=== PATIENT | male | born 1960 | race Caucasian/White ===

== ENCOUNTER 2016-11-02 13:07 | Day surgery (SDC) | payer OTHER ==
[~2016-11-02] VITALS: Ht 170.2 cm; Wt 110.7 kg
[~2016-11-02 13:07] MED LIST: 0.9% Sodium Chloride 1,000 ML IV PRN; Sodium Chloride LOK Flush 10 mL Syringe IV PRN; fentaNYL-PF 50 mCg/mL 2 mL Inj IVPUSH PRN
[2016-11-02 13:44] VITALS: BP 126/77; PULSE 46; O2SAT 97
[2016-11-02] MEDS ORDERED: fentaNYL-PF 50 mCg/mL 2 mL Inj IVPUSH ONE (14:29)
[2016-11-02] MEDS ORDERED: Lactated Ringer's 1,000 ML IV ONE (14:30)
[2016-11-02 14:43] VITALS: BP 109/69; PULSE 46; RESP 16; O2SAT 93
[2016-11-02 14:53] VITALS: BP 118/71; PULSE 54; RESP 16; O2SAT 94
--- NOTE | 2016-11-02 15:01 | ENDO ---
[address] [address] ENDOSCOPY PROCEDURE PATIENT: ALEX GARCIA : 1960 MR#: [id number] ADMIT: 11/02/2016 JOB ID: [id number] DATE OF SERVICE: 11/02/2016 TYPE OF OPERATION: Esophagogastroduodenoscopy with biopsy. PREOPERATIVE DIAGNOSIS(ES): 1. Epigastric pain. 2. Gastroesophageal reflux disease. POSTOPERATIVE DIAGNOSIS(ES): Mild nonerosive gastritis. ANESTHESIA: Fentanyl 100 mcg, Versed 5 mg IV administered. COMPLICATIONS: None. BLOOD LOSS: Minimal. DESCRIPTION OF PROCEDURE: After risks and benefits were explained to the patient, informed consent was obtained. After anesthesia administered, an upper endoscope was then inserted into the mouth, intubating the esophagus, stomach and second portion of the duodenum, and mucosa carefully examined. After the procedure was done, the scope was withdrawn and the procedure terminated. FINDINGS: Upon inspection of the esophagus, the esophagus was normal without masses, ulcers, or lesions. Z-line located 40 cm from incisors. Upon entering into the stomach, there was mild nonerosive gastritis that was seen. No masses, ulcers, or lesions were recognized. Retroflexion was normal. Duodenal bulb, first and second portions normal. Biopsies taken of the antrum, body and distal esophagus. IMPRESSION: Mild nonerosive gastritis. RECOMMENDATION: Await pathology results. Follow up in GI clinic as needed.
[2016-11-02 15:02] VITALS: BP 113/77; PULSE 57; RESP 16; O2SAT 96
== END 2016-11-02 23:59 | disposition home or self-care (01) ==
LOC: END 13:07
PROVIDERS: ATTEND Internal Medicine Gastroenterology
DX: R10.13 Epigastric pain (principal); K29.50 Unspecified chronic gastritis without bleeding; K21.9 Gastro-esophageal reflux disease without esophagitis; K44.9 Diaphragmatic hernia without obstruction or gangrene
CPT/HCPCS: 43239; G0500; J2250; J3010; J7120